=== PATIENT | male | born 1975 | race Caucasian/White ===

== ENCOUNTER 2016-08-15 13:21 | Emergency (ER) | payer SELFPAY ==
[2016-08-15 14:21] VITALS: BP 139/89
--- NOTE | 2016-08-15 15:18 | XRay Report ---
LEFT FINGERS, 3 VIEWS History: Pain, injury. Findings: Soft tissue laceration or injury is suspected in the distal fifth digit. No acute fracture is appreciated on x-ray. There is chronic deformity at the base of the middle phalanx of the fifth digit with flexion at the PIP joint. Please correlate with history. Impression: No acute osseous injury is appreciated.
--- NOTE | 2016-08-15 15:47 | Emergency Department Report ---
Upper Extremity - [facility] Chief Complaint: Extremity Injury, Upper Stated Complaint: LEFT PINKY FINGER LAC Time Seen by Provider: 08/15/16 15:41 Upper Extremity: Left Little Finger Occurred When: Today Mechanism: Hit with Object Severity: severe Symptoms: Yes Pain with Movement, Yes Bruising/Ecchymosis, Yes Laceration or Abrasion (nailbed), No Deformity, No Limited Range of Movement, No Numbness, No Weakness, No Swelling Other History: 40-year-old male comes in for complaint of left hand fifth digit trauma. Patient reports that a concrete block smashes fifth digit. Comes in with pain and bleeding with the laceration. Patient reports he does need a a tetanus shot. ED Review of Systems ROS: Stated complaint: LEFT PINKY FINGER LAC Other details as noted in HPI ED Past Medical Hx - Past Medical History Previous Medical History?: No - Surgical History Past Surgical History?: No - Social History Smoking Status: Current Every Day Smoker Substance Use Type: Alcohol - Medications Home Medications: Home Medications Medication Instructions Recorded Confirmed Last Taken Type Cephalexin [Keflex] 500 mg PO BID #14 capsule 08/15/16 Unknown Rx Ibuprofen [Motrin 800 MG tab] 800 mg PO Q8HR PRN #30 tablet 08/15/16 Unknown Rx Upper Extremity Exam - Exam General: Vital signs noted. No distress. Alert and acting appropriately. Arm Exam: No Arm/Humerus Tenderness, No Arm Deformity Elbow: Yes Normal Range of Motion in Elbow, No Elbow Tenderness, No Elbow Deformity Forearm: No Forearm Tenderness, No Forearm Deformity, No Pain with Pronation, No Pain with Supination Wrist: Yes Normal ROM in Wrist, No Wrist Tenderness, No Wrist Deformity, No Snuffbox Tenderness, No Pain with Axial Thumb Compression Hand: Yes Digit Tenderness (left fifth digit tenderness to the distal Phalanx), Yes Digit(s) Deformity (chronic trigger point), No Hand Tenderness, No Hand Deformity CMS Exam: Yes Broken Skin, Yes Normal Distal Pulses, Yes Normal Capillary Refill , Yes Normal Distal Sensation ED Course Vital Signs 08/15/16 14:18 Temperature 97.8 F Pulse Rate 58 L Respiratory 18 Rate Blood Pressure 139/89 O2 Sat by Pulse 100 Oximetry ED Medical Decision Making - Radiology Data Radiology results: report reviewed, image reviewed LEFT FINGERS, 3 VIEWS History: Pain, injury. Findings: Soft tissue laceration or injury is suspected in the distal fifth digit. No acute fracture is appreciated on x-ray. There is chronic deformity at the base of the middle phalanx of the fifth digit with flexion at the PIP joint. Please correlate with history. Impression: No acute osseous injury is appreciated. Transcribed By: TTR Dictated By: MICHAELLE MCCLELLAN JR, MD Electronically Authenticated By: MICHAELLE MCCLELLAN JR, MD Signed Date/Time: 08/15/16 5462 - Medical Decision Making Patient has been evaluated by his provider fast track. He was given ibuprofen 800 mg by mouth for pain. So cleaned the wound. Appears that were not able to suture since the laceration is over the nailbed itself. We'll apply a bulky dressing tetanus shot and place patient on Keflex and have patient follow up within 3-5 days for evaluation. Critical care attestation.: If time is entered above; I have spent that time in minutes in the direct care of this critically ill patient, excluding procedure time. ED Disposition Clinical Impression: Finger contusion Qualifiers: Encounter type: initial encounter Damage to nail status: with damage Laterality : left Disposition: DISCHARGED TO HOME OR SELFCARE Is pt being admited?: No Does the pt Need Aspirin: No Condition: Stable Instructions: Finger Laceration (ED) Additional Instructions: Keep bandage clean and change daily. Follow up with her primary care provider take antibiotics as prescribed. Prescriptions: Cephalexin [Keflex] 500 mg PO BID #14 capsule Ibuprofen [Motrin 800 MG tab] 800 mg PO Q8HR PRN #30 tablet PRN Reason: Pain Referrals: [facility] [Outside] - 3-5 Days Forms: Work/School Release Form(ED)
[2016-08-15] MEDS ORDERED: MOTRIN PO ONE (15:53)
[2016-08-15] MEDS ORDERED: NACL 0.9% IR ONE ×2 (15:53→15:56)
[2016-08-15] MEDS ORDERED: HYDROGEN PEROXIDE TP ONE (15:54)
[2016-08-15] MEDS ORDERED: BOOSTRIX IM ONE (16:22)
== END 2016-08-15 17:41 | disposition home or self-care (01) ==
LOC: ED 13:21
DX: S61.217A Laceration without foreign body of left little finger without damage to nail, initial encounter (principal); S60.00XA Contusion of unspecified finger without damage to nail, initial encounter; F17.200 Nicotine dependence, unspecified, uncomplicated; W22.8XXA Striking against or struck by other objects, initial encounter; Y93.9 Activity, unspecified; Y99.9 Unspecified external cause status; Y92.89 Other specified places as the place of occurrence of the external cause
CPT/HCPCS: 90471; 90715